=== PATIENT | male | born 1930 | race Caucasian/White ===

== ENCOUNTER → 2017-02-23 | Outpatient (CLI) | payer MEDICARE, OTHER, MEDICAID ==
[~2017-02-23] MED LIST: AMITIZA8 MCG PO; ASA CHILDREN'S81 MG PO; AUGMENTIN 250250 MG PO; BREO ELLIP1 PUFF/DOS IH; CALCITRIOL0.25 MCG PO; CELEXA DPS20 MG PO; COREG DPS12.5 MG PO; COREG3.125 MG PO; DAILY MULTIPLE1 EAC1 PO; DELTASONE DPS20 MG PO; DULCOLAX-DPS10 MG PR; DULERA 100/58.8 GM IH; DUONEB DPS3 ML IH; FLOMAX DPS0.4 MG PO; FLONASE 0.05% D16 GM NS; KENALOG OINT. 015 GM TP; KLOR-CON M2020 ME1 PO; LASIX DPS20 MG PO; LASIX DPS40 MG PO; LOPRESSOR DPS50 MG PO; MILK OF MA2400 MG/10 PO; MILK OF MAGNESI10 ML PO; MYRBETRIQ25 MG PO; NYSTATIN CREAM15 GM TP; NYSTATIN1 EAC1 TP; OCUVITE SOFTGE1 EACH PO; PEPCID20 MG PO; PERIDEX15 ML PO; PROAIR HFA8.5 GM IH; TIAZAC180 MG PO; TYLENOL DPS325 MG PO; ULTRAM DPS50 MG PO; VESICARE5 MG PO; VITAMIN D31000 UNIT PO; ZOCOR DPS20 MG PO
== END | disposition home or self-care (01) ==
LOC: RAD.S 09:00
DX: R13.12 Dysphagia, oropharyngeal phase (principal)